=== PATIENT | male | born 1990 | race Caucasian/White ===

== ENCOUNTER → 2018-01-16 15:05 | Outpatient (CLI) | payer OTHER, SELFPAY | PROVIDERS: Visit Provider Physician Assistant | DX: S60.012A Contusion of left thumb without damage to nail, initial encounter (principal); X58.XXXA Exposure to other specified factors, initial encounter; Y93.9 Activity, unspecified; Y92.9 Unspecified place or not applicable; Y99.9 Unspecified external cause status | CPT/HCPCS: 73140 ==

== ENCOUNTER 2018-02-01 09:09 | Day surgery (SDC) | payer OTHER, SELFPAY ==
[2018-02-01 09:36] VITALS: BP 120/56; PULSE 67; RESP 16; TEMP 36.4; O2SAT 100; BMI 21.4
--- NOTE | 2018-02-01 11:00 | RAD_ITS ---
STUDY: X-RAY - LEFT HAND, ATTENTION FIRST FINGER REASON FOR EXAM: Fracture repair. TECHNIQUE: 6 fluoroscopic view(s) of the finger were obtained. COMPARISON: Radiographs 01/16/2018. FINDINGS: There is an orthopedic pin extending through the distal phalanx into the head of the first proximal phalanx with a nondisplaced fracture of the base of the first distal phalanx. Electronically Signed: Orestes Mcnally MD at 15:17 EDT Tel , Service support , RAD/Finger(s) Min 2 Views
[2018-02-01] MEDS: Cefazolin 2 GM in 0.9% Normal Saline 100 ML IV (11:08)
--- NOTE | 2018-02-01 11:13 | DCINST_ITS ---
Discharge Diet: No Restrictions - KEEP DRESSING INTACT, IF GETS WET RETURN TO OFFICE FOR DRESSING CHANGE, CALL WITH CONCERNS Discharge Activity: May Not Drive May shower in (days): 1 Ice area for (Minutes): 20 - Every hour while awake. Weight Bearing Status: Weight bearing as tolerated Keep extremity elevated above heart level: Operative Extremity Call your doctor if your incision/area has: Continuous Slow Oozing, Sudden Increased Bleeding, Increased Pain/ Swelling, Increased Redness, Foul Smelling Discharge Call your doctor if you observe: Fever of 101 or Higher, Coldness, Increased Pain, Numbness or Tingling, Change in Color, Calf discomfort Allergies/Adverse Reactions: Allergies No Known Allergies Allergy (Unverified 02/01/18 09:35) Medications to take at Discharge NK [NK] 01/31/18 Primary Care Physician: Care Physician,No Primary [Primary Care Provider] - Test Results: Test results from this visit will be discussed in further detail at your follow- up appointment, if applicable. Please Follow Up With: Veda Maher, DO - [phone]
--- NOTE | 2018-02-01 11:13 | PCM.OPRPT ---
Report of Operation Date of Procedure: 02/01/18 Pre-Operative Diagnosis: DISTAL PHALANX FRACTURE WITH DIP SUBLUXATION Post-Operative Diagnosis: SAME Surgery/Procedure Performed:: DIP CLOSED REDUCTION PERCUTANEOUS PINNING quality improvement engineer: Ladarius Nielsen Type of Anesthesia:: General Anesthesiologist: Nelson Marsh Estimated Blood Loss (mL): MINIMAL Fluids Replaced: 600CC Description of Procedure: Preoperative note Patient is a 27-year-old male who sustained injury at work continued pain gross deformity of his left thumb. Patient was seen in our office noted that he had actually had a subluxed joint with a fracture of the volar aspect of his distal phalanx at the DIP joint. Risks benefits and alternatives surgery discussed with patient. Risks including but not limited to blood loss, blood clot, infection, neurovascular injury, failure procedure, loss of life and loss of limb. Patient is aware would like to proceed with left thumb closed reduction percutaneous pinning Operative note Patient seen and examined preoperative holding area. Left thumb was marked. Patient brought to the operating room and placed supine on the operating table. Signing, anesthesia, antibiotics were administered. Left arm was prepped and draped in usual sterile fashion with a tourniquet around his upper arm. Timeout performed. We then used visualizing fluoroscopy AP and lateral planes and he was subluxed dorsally with a fracture again of the volar aspect of his proximal distal phalanx. We then used a 5.54 K wire crossed into the center center into the distal phalanx then reduced the joint and then crossed the pin across the DIP joint we had great reduction of the fracture at that point as well as concentric reduction of the DIP joint. The pin was then bent truncated sterile dressings and a splint was applied. Patient tolerated tolerated procedure well there are no complications discharged to recovery room in stable condition. Next Postoperative note Leave splint on at all times as Follow-up in 2 weeks repeat x-rays Call with increased pain numbness tingling or further issues arise This note was generated with Comic Replyation software. It may contain incorrect words, spelling, and punctuation that were not noted in checking the note before signing.
[2018-02-01] MEDS: Bupivacaine Mpf 0.5% 30 ML VIAL (11:14)
[2018-02-01 11:51] VITALS: BP 110/50; BP 120/56; PULSE 60; RESP 16; TEMP 36.8; O2SAT 95
[2018-02-01 12:00] VITALS: BP 111/62; BP 120/56; PULSE 55; RESP 16; O2SAT 96
[2018-02-01 12:15] VITALS: BP 110/70; BP 120/56; PULSE 55; RESP 16; O2SAT 96
[2018-02-01 12:20] VITALS: BP 117/83; BP 120/56; PULSE 63; RESP 16; TEMP 36.6; O2SAT 97
[2018-02-01 13:00] VITALS: BP 120/56
== END 2018-02-01 13:05 | disposition home or self-care (01) ==
LOC: SDC 09:10 → AC 09:11
PROVIDERS: Visit Provider Orthopaedic Surgery
PROC: (CPT 26742; principal; 2018-02-01 10:45)
DX: S62.525A Nondisplaced fracture of distal phalanx of left thumb, initial encounter for closed fracture (principal); X58.XXXA Exposure to other specified factors, initial encounter; Y93.9 Activity, unspecified; Y92.9 Unspecified place or not applicable; Y99.9 Unspecified external cause status
CPT/HCPCS: 26742; 73140; 76000; J7120

== ENCOUNTER → 2018-02-14 14:11 | Outpatient (CLI) | payer OTHER, SELFPAY ==
--- NOTE | 2018-02-14 14:13 | RAD_ITS ---
STUDY: X-RAY - LEFT HAND REASON FOR EXAM: Postoperative follow-up. TECHNIQUE: 3 view(s) of the hand. COMPARISON: Intraoperative images 02/01/2018. FINDINGS: Normal radiocarpal articulation. Normal distal radioulnar joint. Normal visualized carpal bones. Normal carpal articulations Normal carpometacarpal articulation of the thumb. Normal second through fifth carpometacarpal joints. Normal metacarpi. Normal metacarpophalangeal joint of the thumb. There is an orthopedic pin transfixing the interphalangeal joint of the first digit with a nondisplaced fracture of the palmar aspect of the base of the distal phalanx. Normal metacarpophalangeal joints of the second through fifth fingers. Normal proximal and distal interphalangeal joints of the second through fifth fingers. Normal phalanges of the second through fifth fingers. The soft tissue structures are unremarkable. RAD/Hand Min 3 Views IMPRESSION: Postoperative changes with nondisplaced fracture of the base of the first distal phalanx. Electronically Signed: Orestes Mcnally MD at 14:16 EDT Tel , Service support ,
== END ==
PROVIDERS: Referring Provider Orthopaedic Surgery; Visit Provider Orthopaedic Surgery
DX: S62.522A Displaced fracture of distal phalanx of left thumb, initial encounter for closed fracture (principal); X58.XXXA Exposure to other specified factors, initial encounter; Y93.9 Activity, unspecified; Y92.9 Unspecified place or not applicable; Y99.9 Unspecified external cause status
CPT/HCPCS: 73130

== ENCOUNTER → 2018-03-14 15:00 | Outpatient (CLI) | payer OTHER, SELFPAY ==
--- NOTE | 2018-03-14 15:02 | RAD_ITS ---
STUDY: X-RAY - LEFT HAND, ATTENTION THUMB REASON FOR EXAM: Postoperative follow-up. TECHNIQUE: 3 view(s) of the finger were obtained. COMPARISON: Radiographs 02/14/2018. FINDINGS: Normal metacarpal. Normal metacarpophalangeal joint. There is an orthopedic pin transfixing the interphalangeal joint of the first digit with a nondisplaced healing fracture of the palmar base of the distal phalanx. RAD/Finger(s) Min 2 Views IMPRESSION: Postoperative changes with nondisplaced fracture of the base of the first distal phalanx. Electronically Signed: Orestes Mcnally MD at 15:31 EDT Tel , Service support ,
== END ==
PROVIDERS: Referring Provider Orthopaedic Surgery; Visit Provider Orthopaedic Surgery
DX: S62.522A Displaced fracture of distal phalanx of left thumb, initial encounter for closed fracture (principal); X58.XXXA Exposure to other specified factors, initial encounter; Y93.9 Activity, unspecified; Y92.9 Unspecified place or not applicable; Y99.9 Unspecified external cause status
CPT/HCPCS: 73140

== ENCOUNTER 2018-05-01 16:00 | Outpatient (RCR) | payer OTHER, SELFPAY ==
--- NOTE | 2018-03-22 14:24 | HP.OTEVAL_ITS ---
Patient's Visit Information SUNIL PADILLA is a 27 year old M, referred to Occupational Therapy by Veda Maher DO, with a diagnosis of S60.312A (Pinning 02/01/18). Date of Evaluation: 03/22/18 Occupational Therapist: Lindsay Young - Subjective Subjective: Arrived and noted injury occurred at end of December. He was casted for two weeks, and then got pins put in. Pins were placed for 6 weeks. He is one week post pin removal and 9 weeks post break. Notes he is L hand dominant and back to only light duty work at this time. - Pain Right Hand 1 Pain Intensity Range: 0, 3 - ROM CMC: opposition: R 0-16, L 0-16 MP: flexion R 0-27, L 0-27 IP: R 0-92, L -4-0-3 Radial Abduction: R 0-46, L 0-32 MP: WFL PIP: WFL DIP: WFL ROM Comments: Limited ROM noted of L IP. 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 Goal:: Ramiro to increased L IP flexion to within 30 degrees of R non affected hand with use of ROM techniques and static progressive splint to promote increased strength and ROM of IP to promote increased ability to form composite fist by d/c. Goal:: Ramiro to increase dexterity of L hand through decreased time to complete 9 hole peg board test to promote increased ROM and ability to functionally use L dominant hand for ADL/IADls by d/c. Goal:: Sunil to complete desensitization techniques to L thumb to decrease sensitivity to touch to promote normalizing perceived sensations by d/c. Goal:: Ramiro to be (I) to complete joint protection and thumb mechanics to decrease risk of further injury 4/5 trials 80% of the time by d/c. Goal:: Sunil to be (i) to return to full duty work with L hand and thumb to promote increased ability to complete all job related tasks by d/c. Goal:: Ramiro to be (I) to complete HEP to promote increased ROM, strength, and joint protection techniques 4/5 trials 80% of the time to promote increased (I) for ADl/IADls by d/c. - Rehabilitation General Assessment: Sunil completed OT evaluation on this date 03/22/18. He is 9 weeks post break and recently has pins removed about one week ago. ROM and strength are limited at this time. 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 Additionally, he will complete progressive strengthening program and the potential of static progre ssive splinting if deemed necessary to promote increased strength and ROM of L dominant hand. Modalities to be used as needed for pain management and increased function as well as joint protection techniques to help decrease risk of further injury. TEXT: Thank you for the opportunity to evaluate your patient. For Medicare and Medicare HMO plans, please review the plan of care and approve it. It will need to be FAXED BACK to us at [phone] for Medicare purposes. Please let me know if there are questions or concerns regarding this plan of care. Physician Signature: Date:
--- NOTE | 2018-05-02 07:27 | HP.OTREVAL ---
Veda Maher, DO, It has been my pleasure to treat SUNIL PADILLA over the last 12 visits for S60.312A (Pinning 02/01/18). Please see the progress note below for an update on the occupational therapy plan of care! Subjective: pt. arrives and states that he thinks his thumb is a little bit better. 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 lateral 14# in L and 23# in R. tripod 15# in L and 24# in R. ROM. 0/17 in IP actively. 0/30 in IP passively. ROM Following. 0/ in IP actively. 0/31 passively. patient is making progress with ROM, though it is taking some time. pt. would benefit from further OT services to further increase ROM and strength. 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 Goal:: Ramiro to increased L IP flexion to within 30 degrees of R non affected hand with use of ROM techniques and static progressive splint to promote increased strength and ROM of IP to promote increased ability to form composite fist by d/c. Goal:: Ramiro to increase dexterity of L hand through decreased time to complete 9 hole peg board test to promote increased ROM and ability to functionally use L dominant hand for ADL/IADls by d/c. Goal:: Sunil to complete desensitization techniques to L thumb to decrease sensitivity to touch to promote normalizing perceived sensations by d/c. Goal:: Ramiro to be (I) to complete joint protection and thumb mechanics to decrease risk of further injury 4/5 trials 80% of the time by d/c. Goal:: Sunil to be (i) to return to full duty work with L hand and thumb to promote increased ability to complete all job related tasks by d/c. Goal:: Ramiro to be (I) to complete HEP to promote increased ROM, strength, and joint protection techniques 4/5 trials 80% of the time to promote increased (I) for ADl/IADls by d/c. Anticipated Interventions Anticipated Interventions: A/AAROM/PROM, Strengthening, Desensitization, Modalities, Orthoses, Joint Protection/Energy Conservation, Ergonomic Education, Dynamic Sitting Balance, Fine Motor Coord/Rufus, ADL Training, Caregiver Training, Home Program Please do not hesitate to contact me at [phone] by phone or if you have questions or concerns regarding this new plan of care! Sincerely, Isabel Kramer, OTR/L, CHT
--- NOTE | 2018-09-23 15:01 | HP.OT.NRP ---
HP - Discharge Summary - Patient Information VINAY PADILLA was seen in my office for initial evaluation on 03/22/18. The following Plan of Care was established for this patient: Initial Frequency: 2-3x /Week Initial Duration: 4-6 Weeks Plan: cont w/ prior POC - Anticipated Interventions Anticipated Interventions: A/AAROM/PROM, Strengthening, Desensitization, Modalities, Orthoses, Joint Protection/Energy Conservation, Ergonomic Education, Dynamic Sitting Balance, Fine Motor Coord/Rufus, ADL Training, Caregiver Training, Home Program This patient was last seen in our office 03/22/18. Pertinent comments regarding their Occupational therapy will appear below: pt was seen for 12 OT visits. pt was making small gains with IP flex, but demo understanding of his HEP. pt to return to if he was having more difficulty. Pt d/c at this time. At this point I will be discontinuing this patient from occupational therapy. I would be happy to see this patient again in the future if found appropriate by the physician. Thank you! Isabel Kramer, OTR/L, CHT
== END 2018-05-01 19:00 | disposition home or self-care (01) ==
LOC: OT 16:00
PROVIDERS: Visit Provider Orthopaedic Surgery
DX: S60.312D Abrasion of left thumb, subsequent encounter (principal)
CPT/HCPCS: 97035; 97110; 97140; 97166; 97530; 97760

== ENCOUNTER 2018-12-30 11:23 | Emergency (ER) | payer OTHER, SELFPAY ==
[2018-12-30 11:25] VITALS: BP 133/82; PULSE 68; PULSE 80; RESP 13; RESP 17; TEMP 36.6; O2SAT 100; O2SAT 99; BMI 22.8
--- NOTE | 2018-12-30 11:28 | NURSING ---
NO OLD EKGS
--- NOTE | 2018-12-30 11:29 | EKG12_ITS ---
Test Reason : CP Blood Pressure : / mmHG Vent. Rate : 066 BPM Atrial Rate : 066 BPM P-R Int : 158 ms QRS Dur : 108 ms QT Int : 424 ms P-R-T Axes : 075 103 060 degrees QTc Int : 444 ms Normal sinus rhythm Rightward axis Borderline ECG Confirmed by VINNY FORBES, DMITRY ([id number]), editor greeting card DK GARNICA ([id number]) on 01/01/2019 8:55:23 AM Referred By: SARAH Confirmed By:DMITRY CASILLAS MD
--- NOTE | 2018-12-30 11:29 | RAD_ITS ---
STUDY: X-RAY CHEST REASON FOR EXAM: Male, 28 years old. Chest pain TECHNIQUE: Single AP portable view of the chest. COMPARISON: None. FINDINGS: The lungs are clear and expanded. There is no demonstrated pleural abnormality. Normal size heart. Normal mediastinum and shereen. Normal visualized pulmonary arteries. Normal visualized aortic arch and descending thoracic aorta. Normal visualized thoracic spine. Normal visualized ribs, clavicles, and shoulders. There is no demonstrated abnormality of the visualized soft tissue structures of the upper abdomen. RAD/Chest 1 View (Portable) IMPRESSION: Normal x-ray examination of the chest. Electronically Signed: Bernard Cooper MD at 12:38 EDT Tel , Service support ,
--- NOTE | 2018-12-30 11:29 | CT_ITS ---
STUDY: CTA CHEST REASON FOR EXAM: Male, 28 years old. Chest pain, left arm pain. RADIATION DOSAGE (If Supplied By Facility): CTDIvol = ( 9.79 ) mGy, DLP = ( 385.46 ) mGycm TECHNIQUE: The examination was performed with the intravenous administration of 100 IV Isovue 300. Post-processing of the angiographic images was performed, with multiplanar reformation and 3D reconstruction. Individualized dose optimization techniques were used for this CT. COMPARISON: None. FINDINGS: Normal enhancement of the main pulmonary artery and right and left pulmonary arteries. Normal enhancement of the bilateral peripheral pulmonary arteries. There is no demonstrated pulmonary embolism. Normal thoracic aorta and visualized great vessels. There is no demonstrated aortic dissection. Normal heart and pericardium. Normal mediastinum. Normal hilar regions. Normal visualized trachea and bronchi. The lungs are well expanded. Normal pulmonary parenchyma. Normal pleura. Normal chest wall structures. Normal osseous structures. Normal visualized upper abdomen. CT/CTA Chest W/WO Contrast IMPRESSION: Normal CTA chest examination, without a demonstrated pulmonary embolism or arterial dissection. Electronically Signed: Bernard Cooper MD at 13:09 EDT Tel , Service support ,
[2018-12-30 11:38] LABS: Absolute Lymphocyte Count 1.91 X10^3/uL (0.83-4.51); Absolute Neutrophil Count 4.6 X10^3/uL (2.0-7.7); Basophil# 0.04 X10^3/uL; Basophil% 0.5 % (0-1); Eosinophil# 0.14 X10^3/uL; Eosinophils% 1.9 % (0-5); Hemoglobin 16.7 g/dL (13.0-16.5); Lymphocyte # 1.91 X10^3/ul (4.0); Lymphocyte % 25.9 % (19-41); Mean Corp Hgb Conc 34.8 g/dL (32-36); Mean Corpuscular Hgb 30.8 pg (27.0-32.0); Mean Corpuscular Volume 88.6 fL (80-94); Mean Platelet Vol. 8.6 fl (6.2-12.0); Monocyte# 0.63 X10^3/uL; Monocyte% 8.5 % (0-10); NRBC Flagged by Analyzer 0 % (0-5); Neutrophil # 4.64 X10^3/uL (2.7-7.7); Neutrophil % 62.9 % (47-70); Platelet Count 241 K/mm3 (150-450); RBC Distribution Width CV 12.7 % (11.6-14.6); RBC Distribution Width SD 41.1 fl (35.1-43.9); Red Blood Count 5.42 M/mm3 (4.6-6.2); White Blood Count 7.4 K/mm3 (4.4-11.0)
--- NOTE | 2018-12-30 11:42 | ED.VIS.GEN ---
History of Present Illness Chief Complaint: Chest Pain Informant: Patient Onset: Today Context: Sudden Onset Timing: Continuous Current Severity: Moderate Maximum Severity: Moderate Narrative: The patient presents to the emergency department with left-sided chest pain, neck pain, and arm tingling. He states he was in his normal state of health. He was at work. He states suddenly, he began to have a sharp pain in his left chest. He states it went to his neck and he began to have tingling in his arm. He states that he thought it might of been an anxiety reaction as he has had symptoms like this before. However, he is never had the symptoms in the left arm. He does describe some pain when he takes a deep breath. He denies any fevers or chills. He denies any trauma. He has no history of coronary vascular disease. Prior similar symptoms: No Recent Illness/Hospitalization: No Past Medical History - Allergies and Home Meds Allergies/Adverse Reactions: Allergies No Known Allergies Allergy (Verified 12/30/18 11:25) Primary Care Physician: Care Physician,No Primary [Primary Care Provider] - Prior records reviewed: Yes Past Medical History: None Surgical History: no surgical history Smoking Status: Never smoker Review of Systems General: Denies: Chills, Fever, Sweats Eyes: Denies: Visual changes - bilaterally, Diplopia ENT: Denies: Rhinorrhea, Sore throat Cardiovascular: Reports: Chest pain Respiratory: Reports: Dyspnea Gastrointestinal: Denies: Abdominal pain, Nausea, Vomiting, Diarrhea, Melena, Hematochezia Genitourinary: Denies: Dysuria, Hematuria, Frequency Musculoskeletal: Denies: Back pain, Extremity Pain Skin: Denies: Rash, Wounds Neurological: Denies: Headache, Weakness, Numbness Physical Exam Vital Signs/Narrative: Vital Signs Temp Pulse Resp BP Pulse Ox 12/30/18 11:25 97.8 F 68 17 133/82 H 100 Inital Vital Signs reviewed: Yes General: Well nourished, Well developed, No Acute Distress Head: Normocephalic, Atraumatic Eyes: Perrl, EOMI ENT: Moist mucous membranes, No rhinorrhea Neck: Supple, Nontender Cardiovascular: Regular rate, Regular rhythm, No murmurs Respiratory: No distress, CTA bilaterally, Chest nontender Abdomen: Soft, Nontender, Nondistended, Normal bowel sounds Back: Nontender, Normal Inspection Extremities: Nontender, No edema Skin: Normal color, No rash Neurological: Alert, Oriented x3, Cranial nerves II-XII grossly intact, Normal Strength, Normal Sensation Psychological: Normal affect, Normal Mood Diagnostic/Tx/Re-eval Clinical Impression(s) from Imaging Studies Chest CTA 12/30/18 11:29 IMPRESSION: Normal CTA chest examination, without a demonstrated pulmonary embolism or arterial dissection. Electronically Signed: Bernard Cooper MD at 13:09 EDT Tel , Service support , Chest X-Ray 12/30/18 11:29 IMPRESSION: Normal x-ray examination of the chest. Electronically Signed: Bernard Cooper MD at 12:38 EDT Tel , Service support , Abnormal Lab Results 12/30/18 12/30/18 11:30 11:30 WBC 7.4 RBC 5.42 Hgb 16.7 H Hct 48.0 MCV 88.6 MCH 30.8 MCHC 34.8 RDW Std Deviation 41.1 RDW Coeff of Bell 12.7 Plt Count 241 MPV 8.6 Immature Gran % (Auto) 0.300 Neut % (Auto) 62.9 Lymph % (Auto) 25.9 [place] % (Auto) 8.5 Eos % (Auto) 1.9 Baso % (Auto) 0.5 Absolute Neuts (auto) 4.6 Absolute Lymphs (auto) 1.91 Nucleated RBC % 0 Sodium 139 Potassium 3.9 Chloride 103 Carbon Dioxide 30.0 Anion Gap 6 BUN 19 H Creatinine 1.41 H Estim Creat Clear Calc 87.55 Est GFR (MDRD) Af Amer 76 Est GFR (MDRD) Non-Af 63 BUN/Creatinine Ratio 13.5 Glucose 84 Calcium 9.4 Troponin I < 0.015 - Rhythm Strip Rhythm Strip: Sinus Rhythm Ectopy: None - EKG Initial EKG Interpretation: Sinus Rhythm, No Acute Injury Pattern Prior: No Prior - Medical Decision Making The patient presents with left-sided chest pain that is worse when he moves or breathes. He does not describe it as a tearing pain. He has no history of coronary vascular disease. His EKG was unremarkable. Screening labs including cardiac enzymes are normal. I did obtain a CTA given the patient's symptoms. There is no evidence of dissection or pulmonary embolus. With anti-inflammatories, he is feeling improved. I do not suspect a dangerous cause of his pain at this point. I do feel that he is safe for outpatient follow-up. The patient is comfortable with this plan of care. Impression 1. Noncardiac chest pain ED Disposition - Plan for ED Patient: Disposition: Home or Assisted Living Instructions: CHEST WALL PAIN, Costochondritis Prescriptions: Naproxen [Naprosyn] 500 mg PO BID PRN #20 tab Prescription Printed Referrals: Care Physician,No Primary [Primary Care Provider] -
[2018-12-30 11:54] LABS: BUN 19 mg/dL (7-18); BUN/Creat Ratio 13.5 RATIO (10-20); Creatinine, Serum 1.41 mg/dL (0.70-1.30); EST Glomerular Filtration Rate 63 mL/min (>60); Est Glom Filt Rate - Afr Amer 76 mL/min (>60); Estimated Creatinine Clearance 87.55 ml/min; Glucose 84 mg/dL (74-106)
[2018-12-30 11:55] LABS: Anion Gap 6 (5-15); Calcium,Total 9.4 mg/dL (8.5-10.1); Chloride 103 mmol/L (98-107); Potassium 3.9 mmol/L (3.5-5.1); Sodium Level 139 mmol/L (136-145)
[2018-12-30] MEDS: Aspirin 81 MG TAB.CHEW 324 MG PO (12:05)
[2018-12-30] MEDS: Morphine 4 MG/ML Syringe IV (12:06)
[2018-12-30] MEDS: Ondansetron 4 MG/2 ML Vial IV (12:06)
[2018-12-30] MEDS: 0.9% Normal Saline 1,000 ML 1000 ML IV (12:07)
[2018-12-30 13:09] VITALS: BP 116/65; PULSE 60; RESP 12; O2SAT 100
[2018-12-30] MEDS: Ketorolac 15 MG/ML Vial IV (13:20)
[2018-12-30 14:15] VITALS: BP 111/70; PULSE 57; RESP 12; O2SAT 100
[2018-12-30 14:16] VITALS: RESP 16
--- NOTE | 2018-12-30 14:16 | ED.RN ---
REVIEWED D/C INSTRUCTIONS, FOLLOW UP CARE, PRESCRIPTION, AND S/S THAT WOULD WARRANT A RETURN TO THE ED WITH PT. PT VERBALIZED AN UNDERSTANDING AND DENIES FURTHER QUESTIONS FOR THIS RN. PT SKIN P/W/D, RESP EVEN AND UNLABORED, PT A&O X 3, NO DISTRESS NOTED. PT AMBULATED OUT OF ED, GAIT STEADY.
== END 2018-12-30 14:17 | disposition home or self-care (01) ==
PROVIDERS: Emergency Provider Emergency Medicine
DX: R07.89 Other chest pain (principal); M54.2 Cervicalgia; R20.2 Paresthesia of skin
CPT/HCPCS: 71045; 71275; 80048; 84484; 85025; 93005; 96361; 96374; 96375; 99285; Q9967; J2405